=== PATIENT | male | born 1990 | race Caucasian/White ===

== ENCOUNTER 2024-06-04 16:12 | Emergency (ER) | payer OTHER, MEDICARE ==
[2024-06-04] MEDS: Lidocaine 1% with EPINEPHrine 1:100,000 20 ML MDV INJECT ONE (17:47)
[2024-06-04] MEDS: Diphtheria,Pertussis(Acell),Tetanus Vaccine 0.5 ML Syringe IM ONE (17:53)
== END 2024-06-04 18:08 | disposition home or self-care (01) ==
LOC: JP.ED 16:12
DX: S01.01XA Laceration without foreign body of scalp, initial encounter (principal); E78.00 Pure hypercholesterolemia, unspecified; Z86.73 Personal history of transient ischemic attack (TIA), and cerebral infarction without residual deficits; Z79.02 Long term (current) use of antithrombotics/antiplatelets; Z79.899 Other long term (current) drug therapy; W20.8XXA Other cause of strike by thrown, projected or falling object, initial encounter
CPT/HCPCS: 12002; 70450; 70450-26; 90471; 90715; 99283-25

== ENCOUNTER 2024-06-13 17:37 | Emergency (ER) | payer OTHER, MEDICARE ==
[2024-06-13] MEDS: Proparacaine 0.5% Ophth Soln 15 ML Bottle EYEBOTH STA (18:13)
== END 2024-06-13 18:22 | disposition home or self-care (01) ==
LOC: JP.ED 17:37
DX: H57.8A1 Foreign body sensation, right eye (principal); E78.00 Pure hypercholesterolemia, unspecified; Z86.73 Personal history of transient ischemic attack (TIA), and cerebral infarction without residual deficits; Z79.899 Other long term (current) drug therapy
CPT/HCPCS: 99283; A9270